=== PATIENT | female | born 1990 | race Caucasian/White ===

== ENCOUNTER 2017-09-04 11:50 | Observation (INO) | payer OTHER ==
[~2017-09-04] VITALS: Ht 167.6 cm; Wt 116.8 kg
[2017-09-04 12:45] LABS: MICROSCOPIC INDICATED
[2017-09-04] MEDS ORDERED: PREN1TAB60 PO (12:50)
[2017-09-04 12:54] VITALS: BP 130/60
[2017-09-04 13:13] LABS: BASOPHILS # (AUTO) 0.02 x10^3/uL (0-0.1); BASOPHILS % (AUTO) 0 % (0-1); EOSINOPHILS # (AUTO) 0.11 x10^3/uL (0-0.4); EOSINOPHILS % (AUTO) 1 % (1-7); LYMPHOCYTES # (AUTO) 1.29 x10^3/uL (1-3.4); LYMPHOCYTES % (AUTO) 14 % (22-44); MD NO; MEAN CORPUSCULAR HEMOGLOBIN 29.1 pg (27.0-34.8); MEAN CORPUSCULAR HGB CONC 33.9 g/dL (32.4-35.8); MEAN CORPUSCULAR VOLUME 85.7 fL (80-100); MEAN PLATELET VOLUME 10.2 fL (7.4-10.4); MONOCYTES # (AUTO) 0.71 x10^3/uL (0.2-0.8); MONOCYTES % (AUTO) 8 % (2-9); NEUTROPHILS # (AUTO) 6.91 x10^3/uL (1.8-6.8); NEUTROPHILS % (AUTO) 76 % (42-75); PLATELET COUNT 152 x10^3/uL (130-400); RED BLOOD COUNT 3.98 x10^6/uL (3.82-5.3); RED CELL DISTRIBUTION WIDTH 14.4 % (9.6-15.2)
[2017-09-04 13:26] LABS: ALANINE AMINOTRANSFERASE 17 U/L (12-78); ALBUMIN 2.7 g/dL (3.4-5.0); ANION GAP 8 mmol/L (5-15); CALCIUM 8.9 mg/dL (8.5-10.1); CHLORIDE 109 mmol/L (98-107)
[2017-09-04 13:34] LABS: ALKALINE PHOSPHATASE 145 U/L (45-117); BILIRUBIN,TOTAL 0.4 mg/dL (0.2-1.0); TOTAL PROTEIN 6.4 g/dL (6.4-8.2)
[2017-09-04 13:36] LABS: BILIRUBIN, DIRECT < 0.1 mg/dL (0.1-0.2)
== END 2017-09-04 15:45 | disposition home or self-care (01) ==
LOC: LDOP 11:50 → LDIP 14:54
PROVIDERS: ADMIT Obstetrics & Gynecology; ATTEND Obstetrics & Gynecology
DX: O99.513 Diseases of the respiratory system complicating pregnancy, third trimester (principal); R06.02 Shortness of breath; O26.893 Other specified pregnancy related conditions, third trimester; R03.0 Elevated blood-pressure reading, without diagnosis of hypertension; Z3A.38 38 weeks gestation of pregnancy
CPT/HCPCS: 36415; 59025; 80053; 81001; 82248; 82570; 84156; 84550; 85025; 87086; G0378

== ENCOUNTER 2017-09-05 13:31 | Outpatient (CLI) | payer OTHER ==
[~2017-09-05] VITALS: Ht 167.6 cm; Wt 116.8 kg
[~2017-09-05 13:31] MED LIST: PREN1TAB60 PO
[2017-09-05 13:40] VITALS: BP 128/61
[2017-09-05] MEDS ORDERED: ACETAMINOPHEN 325 MG TABLET ONE (14:07)
[2017-09-05] MEDS ORDERED: ACETAMINOPHEN 325 MG TABLET PO PRN (14:30)
== END 2017-09-05 15:05 | disposition home or self-care (01) ==
LOC: LDOP 13:31
PROVIDERS: ATTEND Obstetrics & Gynecology Maternal & Fetal Medicine
DX: O26.893 Other specified pregnancy related conditions, third trimester (principal); R51 Headache; Z3A.39 39 weeks gestation of pregnancy
CPT/HCPCS: 59025; 99211; G0463

== ENCOUNTER 2017-09-12 08:10 | Inpatient (IN) | payer OTHER ==
[~2017-09-12] VITALS: Ht 167.6 cm; Wt 117.7 kg
[2017-09-17] MEDS: D5%-LACTATED RINGERS 1,000 ML IV SCH (16:07)
[2017-09-17] MEDS ORDERED: OXYTOCIN 30U/ 0.9% NaCL 500ML 500 ML IV ONE (16:07)
[2017-09-17] MEDS ORDERED: OXYTOCIN 30U/ 0.9% NaCL 500ML 500 ML IV PRN (16:07)
[2017-09-17] MEDS ORDERED: FENTANYL PF 100 MCG/2ML IV PRN (16:30)
[2017-09-17] MEDS ORDERED: FENTANYL PF 100 MCG/2ML IVPush PRN (16:30)
[2017-09-17] MEDS ORDERED: ONDANSETRON 2MG/ML, 2ML IVPush PRN (16:30)
[2017-09-17 16:43] LABS: BASOPHILS # (AUTO) 0.03 x10^3/uL (0-0.1); BASOPHILS % (AUTO) 0 % (0-1); EOSINOPHILS # (AUTO) 0.15 x10^3/uL (0-0.4); EOSINOPHILS % (AUTO) 1 % (1-7); LYMPHOCYTES # (AUTO) 1.52 x10^3/uL (1-3.4); LYMPHOCYTES % (AUTO) 15 % (22-44); MD NO; MEAN CORPUSCULAR HEMOGLOBIN 28.5 pg (27.0-34.8); MEAN CORPUSCULAR HGB CONC 33.2 g/dL (32.4-35.8); MEAN CORPUSCULAR VOLUME 85.7 fL (80-100); MEAN PLATELET VOLUME 10.4 fL (7.4-10.4); MONOCYTES # (AUTO) 0.77 x10^3/uL (0.2-0.8); MONOCYTES % (AUTO) 8 % (2-9); NEUTROPHILS # (AUTO) 7.81 x10^3/uL (1.8-6.8); NEUTROPHILS % (AUTO) 76 % (42-75); PLATELET COUNT 167 x10^3/uL (130-400); RED BLOOD COUNT 4.28 x10^6/uL (3.82-5.3); RED CELL DISTRIBUTION WIDTH 14.9 % (9.6-15.2)
[2017-09-17] MEDS ORDERED: OXYTOCIN 30U/ 0.9% NaCL 500ML 500 ML ONE (16:54)
[2017-09-17 16:56] LABS: ALBUMIN 2.7 g/dL (3.4-5.0); ANION GAP 9 mmol/L (5-15); CALCIUM 8.5 mg/dL (8.5-10.1); CHLORIDE 109 mmol/L (98-107)
[2017-09-17 17:00] LABS: ALANINE AMINOTRANSFERASE 20 U/L (12-78); ALKALINE PHOSPHATASE 162 U/L (45-117); BILIRUBIN,TOTAL 0.4 mg/dL (0.2-1.0); CREATININE 0.55 mg/dL (0.55-1.02); TOTAL PROTEIN 6.8 g/dL (6.4-8.2)
[2017-09-17 17:02] LABS: BILIRUBIN, DIRECT < 0.1 mg/dL (0.1-0.2)
[2017-09-17] MEDS: LACTATED RINGERS 1,000 ML IV SCH ×3 (17:04→23:40)
[2017-09-17] MEDS ORDERED: ACETAMINOPHEN 500 MG TABLET ONE (17:59)
[2017-09-17] MEDS ORDERED: ACETAMINOPHEN 500 MG TABLET PO ONE (18:00)
[2017-09-17] MEDS ORDERED: NEWBORN KIT ONE (19:07)
[2017-09-17] MEDS ORDERED: LIDOCAINE 1%, 20ML ONE (19:07)
[2017-09-17] MEDS ORDERED: MISOPROSTOL 200 MCG TABLET ONE (19:08)
[2017-09-17] MEDS ORDERED: FENTANYL/BUPIV./NS/PF 250 ML EPIDCONT ONE (23:55)
[2017-09-17] MEDS ORDERED: BUPIVACAINE 0.25% ONE (23:55)
[2017-09-18] MEDS: LACTATED RINGERS 1,000 ML IV SCH ×3 (00:18→16:18)
[2017-09-18] MEDS: FENTANYL/BUPIV./NS/PF 250 ML EPIDCONT SCH ×2 (00:18→21:08)
[2017-09-18] MEDS ORDERED: LACTATED RINGERS 1,000 ML IVBOLUS PRN (00:30)
[2017-09-18] MEDS ORDERED: BUPIVACAINE 0.25% ONE ×3 (01:20→02:20)
[2017-09-18] MEDS: D5%-LACTATED RINGERS 1,000 ML IV SCH ×3 (01:29→16:07)
[2017-09-18] MEDS ORDERED: LIDOCAINE-MPF 2% ,5ML ONE ×2 (01:29)
[2017-09-18] MEDS ORDERED: FENTANYL/BUPIV./NS/PF 250 ML EPIDCONT ONE (14:51)
[2017-09-18] MEDS: OXYTOCIN 30U/ 0.9% NaCL 500ML 500 ML IV SCH (18:15)
[2017-09-18] MEDS ORDERED: RHOGAM FROM BLOOD BANK 1 NOTE EA IM/IV ONE (18:30)
[2017-09-18] MEDS ORDERED: ONDANSETRON 2MG/ML, 2ML IV PRN (18:30)
[2017-09-18] MEDS ORDERED: CALCIUM CARBONATE 500 MG TAB.CHEW PO PRN (18:30)
[2017-09-18] MEDS ORDERED: MEASLES,MUMPS&RUBELLA VACC/PF 0.5 ML SQ PRN (18:30)
[2017-09-18] MEDS ORDERED: DIPH,PERTUSS(ACELL),TET VAC/PF NC IM-VACC PRN (18:30)
[2017-09-18] MEDS ORDERED: MAGNESIUM HYDROXIDE 8%, 30ML UDC PO PRN (18:30)
[2017-09-18] MEDS ORDERED: ACETAMINOPHEN 325 MG TABLET PO PRN ×2 (18:30)
[2017-09-18] MEDS ORDERED: OXYcodone/APAP 5/325MG TABLET PO PRN (18:30)
[2017-09-18] MEDS ORDERED: MISOPROSTOL 200 MCG TABLET PR PRN (18:30)
[2017-09-18] MEDS ORDERED: OXYTOCIN 30U/ 0.9% NaCL 500ML 0 ML ONE (19:00)
[2017-09-18] MEDS ORDERED: IBUPROFEN 600 MG TABLET ONE (19:00)
[2017-09-18] MEDS: IBUPROFEN 600 MG TABLET PO PRN (19:32)
[2017-09-18] MEDS ORDERED: LIDOCAINE 1%, 20ML ONE (19:49)
[2017-09-18] MEDS ORDERED: OXYTOCIN 30U/ 0.9% NaCL 500ML 500 ML ONE (19:49)
[2017-09-18] MEDS ORDERED: MISOPROSTOL 200 MCG TABLET ONE (19:49)
[2017-09-18] MEDS ORDERED: NEWBORN KIT ONE (19:49)
[2017-09-18 20:50] VITALS: BP 131/71
[2017-09-19] MEDS: D5%-LACTATED RINGERS 1,000 ML IV SCH (00:07)
[2017-09-19 00:15] VITALS: BP 123/78
[2017-09-19] MEDS: LACTATED RINGERS 1,000 ML IV SCH ×3 (00:18→10:14)
[2017-09-19 03:50] VITALS: BP 125/80
[2017-09-19] MEDS: IBUPROFEN 600 MG TABLET PO PRN ×3 (03:51→20:23)
[2017-09-19] MEDS: OXYcodone/APAP 5/325MG TABLET PO PRN ×4 (03:51→20:23)
[2017-09-19 03:53] LABS: MEAN CORPUSCULAR HEMOGLOBIN 28.9 pg (27.0-34.8); MEAN CORPUSCULAR HGB CONC 33.6 g/dL (32.4-35.8); MEAN CORPUSCULAR VOLUME 86.1 fL (80-100); MEAN PLATELET VOLUME 9.8 fL (7.4-10.4); PLATELET COUNT 131 x10^3/uL (130-400); RED BLOOD COUNT 2.97 x10^6/uL (3.82-5.3); RED CELL DISTRIBUTION WIDTH 14.8 % (9.6-15.2)
[2017-09-19] MEDS: OXYTOCIN 30U/ 0.9% NaCL 500ML 500 ML IV SCH ×2 (04:15→10:11)
[2017-09-19 04:18] LABS: BASOPHILS # (AUTO) 0.07 x10^3/uL (0-0.1); BASOPHILS % (AUTO) 0 % (0-1); EOSINOPHILS # (AUTO) 0.08 x10^3/uL (0-0.4); EOSINOPHILS % (AUTO) 0 % (1-7); LYMPHOCYTES # (AUTO) 1.53 x10^3/uL (1-3.4); LYMPHOCYTES % (AUTO) 8 % (22-44); MD SCAN; MONOCYTES # (AUTO) 1.43 x10^3/uL (0.2-0.8); MONOCYTES % (AUTO) 8 % (2-9); NEUTROPHILS # (AUTO) 15.18 x10^3/uL (1.8-6.8); NEUTROPHILS % (AUTO) 83 % (42-75)
[2017-09-19 07:05] VITALS: BP 111/65
[2017-09-19] MEDS: PRENATAL VIT/IRON/FA 1 EACH TABLET PO SCH (08:07)
[2017-09-19] MEDS: DOCUSATE 100 MG CAPSULE PO PRN ×2 (08:07→20:24)
[2017-09-19 11:55] VITALS: BP 115/69
[2017-09-19 16:46] VITALS: BP 141/84
[2017-09-19 20:20] VITALS: BP 124/68
[2017-09-20] MEDS: IBUPROFEN 600 MG TABLET PO PRN ×2 (02:52→14:02)
[2017-09-20] MEDS: OXYcodone/APAP 5/325MG TABLET PO PRN ×2 (02:52→14:03)
[2017-09-20 07:43] VITALS: BP 111/58
[2017-09-20] MEDS: PRENATAL VIT/IRON/FA 1 EACH TABLET PO SCH (08:54)
[2017-09-20] MEDS: DOCUSATE 100 MG CAPSULE PO PRN (08:54)
[2017-09-20] MEDS ORDERED: IBUP-1222 PO (10:26)
== END 2017-09-20 16:20 | disposition home or self-care (01) | DRG 775 ==
LOC: LDIP 09-17 15:47 → 2NW 09-18 20:38
PROVIDERS: ADMIT Obstetrics & Gynecology; ATTEND Obstetrics & Gynecology
PROC: 10E0XZZ Delivery of Products of Conception, External Approach (ICD-10-PCS; principal; 2017-09-18)
PROC: 0HQ9XZZ Repair Perineum Skin, External Approach (ICD-10-PCS; 2017-09-18)
PROC: 10907ZC Drainage of Amniotic Fluid, Therapeutic from Products of Conception, Via Natural or Artificial Opening (ICD-10-PCS; 2017-09-18)
PROC: 3E0R3BZ Introduction of Anesthetic Agent into Spinal Canal, Percutaneous Approach (ICD-10-PCS; 2017-09-18)
PROC: 00HU33Z Insertion of Infusion Device into Spinal Canal, Percutaneous Approach (ICD-10-PCS; 2017-09-18)
DX: O48.0 Post-term pregnancy (principal); Z68.41 Body mass index [BMI] 40.0-44.9, adult; O14.04 Mild to moderate pre-eclampsia, complicating childbirth; Z37.0 Single live birth; O69.81X0 Labor and delivery complicated by cord around neck, without compression, not applicable or unspecified; O70.0 First degree perineal laceration during delivery; Z3A.40 40 weeks gestation of pregnancy; O99.214 Obesity complicating childbirth; E66.9 Obesity, unspecified
CPT/HCPCS: 36415; 80053; 82248; 82803; 83615; 84550; 85025; 85461; 86850; 86900; J2790; J3490; J2590; J3010; J7120; J7121

== ENCOUNTER 2017-09-13 19:38 | Outpatient (CLI) | payer OTHER ==
[~2017-09-13] VITALS: Ht 167.6 cm; Wt 116.8 kg
[2017-09-13 19:56] VITALS: BP 138/81
[2017-09-13 21:16] LABS: MICROSCOPIC INDICATED
== END 2017-09-13 21:05 | disposition home or self-care (01) ==
LOC: LDOP 19:38
PROVIDERS: ATTEND Obstetrics & Gynecology
DX: O36.8130 Decreased fetal movements, third trimester, not applicable or unspecified (principal); Z3A.40 40 weeks gestation of pregnancy
CPT/HCPCS: 59025; 81001; 87086; 99211; G0463